=== PATIENT | female | born 1950 | race Caucasian/White ===

== ENCOUNTER 2019-04-28 20:01 | Inpatient (IN) | payer MEDICARE, OTHER ==
[~2019-04-28] VITALS: Ht 175.3 cm; Wt 146.6 kg
[2019-04-28 20:59] LABS: Hematocrit 37.6 % (33.0-51.0); Hemoglobin 12.2 g/dL (11.5-16.0); Mean Corpuscular HGB 31.1 pg (26.0-34.0); Mean Corpuscular HGB Conc 32.4 g/dL (31.5-36.5); Mean Corpuscular Volume 96 fL (80-100); Mean Platelet Volume 10.4 fL (9.1-12.4); Platelet Count 94 K/mm3 (150-400); RDW Coefficient Variation 13.6 % (11.7-14.2); RDW Standard Deviation 48.1 fL (35.1-46.3); Red Blood Cell Count 3.92 M/mm3 (3.80-5.20); White Blood Cell Count 8.25 K/mm3 (4.00-11.30)
[2019-04-28 21:15] LABS: BAND PERCENT MAN 14 % (0-8); BASOPHILS ABSOLUTE MAN 0.08 K/mm3 (0.00-0.23); BASOPHILS PERCENT MAN 1 % (0-2); EOSINOPHILS PERCENT MAN 0 % (0-6); LYMPHOCYTES ABSOLUTE MAN 0.74 K/mm3 (0.84-5.20); LYMPHOCYTES PERCENT MAN 9 % (21-46); MONOCYTES ABSOLUTE MAN 0.49 K/mm3 (0.16-1.47); MONOCYTES PERCENT MAN 6 % (4-13); NEUTROPHILS ABSOLUTE MAN 6.93 K/mm3 (1.96-9.15); SEG NEUTROPHILS PERCENT MAN 70 % (41-73); TOTAL CELLS COUNTED 100
[2019-04-28 21:17] LABS: Albumin, Blood 3.4 g/dL (3.4-5.0); Albumin/Globulin Ratio 0.8 (0.8-1.8); Bilirubin, Total 1.6 mg/dL (0.1-1.0); Bun/Creatinine Ratio 20.5 (12.0-20.0); Calcium, Blood 9.3 mg/dL (8.5-10.1); Creatinine, Blood 1.17 mg/dL (0.40-1.00); Globulin, Blood 4.4 g/dL (2.2-4.0); Potassium, Blood 3.8 mmol/L (3.5-5.5); Total Protein, Blood 7.8 g/dL (6.4-8.2)
[2019-04-28] MEDS ORDERED: MS Contin15 MG PO (22:06)
[2019-04-28] MEDS ORDERED: Protonix40 MG PO (22:06)
[2019-04-28] MEDS ORDERED: VENLAFAXINE HCL75 MG PO (22:06)
[2019-04-28] MEDS ORDERED: Zantac150 MG PO (22:06)
[2019-04-28] MEDS ORDERED: HYDCHL25 PO (22:07)
[2019-04-28] MEDS ORDERED: PROP160ER PO (22:07)
[2019-04-28 22:15] LABS: Source, Urine Clean Catch
[2019-04-28 22:18] LABS: Bilirubin, Urine Neg (Neg); Blood, Urine Neg (Neg); Glucose Qualitative, Urine Neg (Neg); Ketones, Urine Neg (Neg); Leukocyte Esterase, Urine 2+ (Neg); Nitrite, Urine Neg (Neg); Protein, Urine 1+ (Neg); Specific Gravity, Urine 1.015 (1.003-1.022); Urobilinogen, Urine 2+ (Normal); pH, Urine 6.5 (5.0-8.0)
[2019-04-28 22:21] LABS: Appearance, Urine Clear (Clear); Color, Urine Yellow (P-Yellow)
[2019-04-28 22:26] LABS: Bacteria Few /hpf; Red Blood Cells, Urine Not Seen /hpf (0-2); Squamous Epithelial Cells Few /hpf (Few)
[2019-04-29 05:20] LABS: BASOPHILS ABSOLUTE AUTO 0.02 K/mm3 (0.00-0.23); BASOPHILS PERCENT AUTO 0 % (0-2); EOSINOPHILS ABSOLUTE AUTO 0.05 K/mm3 (0.00-0.68); EOSINOPHILS PERCENT AUTO 1 % (0-6); Hematocrit 31.8 % (33.0-51.0); Hemoglobin 10.2 g/dL (11.5-16.0); IMMATURE GRAN ABSOLUTE AUTO 0.03 K/mm3 (0.00-0.10); IMMATURE GRAN PERCENT AUTO 1 % (0-1); LYMPHOCYTES ABSOLUTE AUTO 0.89 K/mm3 (0.84-5.20); LYMPHOCYTES PERCENT AUTO 14 % (21-46); MONOCYTES ABSOLUTE AUTO 0.61 K/mm3 (0.16-1.47); MONOCYTES PERCENT AUTO 10 % (4-13); Mean Corpuscular HGB 31.3 pg (26.0-34.0); Mean Corpuscular HGB Conc 32.1 g/dL (31.5-36.5); Mean Corpuscular Volume 98 fL (80-100); Mean Platelet Volume 10.4 fL (9.1-12.4); NEUTROPHILS ABSOLUTE AUTO 4.65 K/mm3 (1.96-9.15); NEUTROPHILS PERCENT AUTO 74 % (41-73); Platelet Count 77 K/mm3 (150-400); RDW Coefficient Variation 13.6 % (11.7-14.2); RDW Standard Deviation 48.6 fL (35.1-46.3); Red Blood Cell Count 3.26 M/mm3 (3.80-5.20); White Blood Cell Count 6.25 K/mm3 (4.00-11.30)
--- NOTE | 2019-04-29 05:29 | NUR ---
SHIFT SUMMARY PT NEW ED ADMIT THIS EVENING. ACUTE PANCREATITIS. DENIED NAUSEA SINCE ADMISSION BUT REPORTS ABD PAIN TO MID UPPER AND R LOWER QUADRANTS. MEDICATED X 1 WITH 1 MG DILAUDID AND PT HAS BEEN SLEEPING EVER SINCE. PT AMBULATED WELL TO THE RESTROOM WITH A FWW AND SBA. NS W/ 20 K RUNNING AT 150 ML/HR ORDERED. PT ON HOME DOSE OF O2 AT 2.5 L VIA NC. PT HAS BEEN NPO THROUGHOUT THE NIGHT. SPONGES PROVIDED TO MOISTEN MOUTH. ICE PACK REQUESTED BY PATIENT FOR RLQ ABD PAIN, APPEARS TO BE HELPFUL. PT A/O, PLEASANT AND COOPERATIVE. NO ACUTE CHANGES THIS SHIFT. VITAL SIGNS STABLE. WILL CONTINUE TO MONITOR.
[2019-04-29 05:43] LABS: Albumin, Blood 2.8 g/dL (3.4-5.0); Albumin/Globulin Ratio 0.8 (0.8-1.8); Bilirubin, Total 0.7 mg/dL (0.1-1.0); Bun/Creatinine Ratio 19.1 (12.0-20.0); Calcium, Blood 8.3 mg/dL (8.5-10.1); Creatinine, Blood 1.1 mg/dL (0.40-1.00); Globulin, Blood 3.6 g/dL (2.2-4.0); Potassium, Blood 4.2 mmol/L (3.5-5.5); Total Protein, Blood 6.4 g/dL (6.4-8.2)
--- NOTE | 2019-04-29 15:56 | NUR ---
SHIFT SUMMARY NO ACUTE CHANGES. PATIENT MEDICATED X2 FOR ABDOMINAL PAIN. PATIENT DENIES NAUSEA AND SHORTNESS OF BREATH. PATIENT NAPPING MOST OF SHIFT. PATIENT WORKED WITH PT TODAY. PATIENT UP SBA W/FWW TO BR. PATIENT NPO. CALL LIGHT IN REACH.
--- NOTE | 2019-04-30 06:33 | NUR ---
SHIFT SUMMARY: 69 Y/O OBESE FEMALE RESTED COMFORTABLY ALL SHIFT, PT C/O ABD PAIN RATED 6/10 WITH FENTANYL 50MCG IVP GIVEN THREE TIMES WITH RELIEF FELT, ABLE TO TRANSFER AND AMBULATE TO BATHROOM WITHOUT DIFFICULTY, VOIDING CLEAR YELLOW FLUID, BED LOW POSITION WITH CALL LIGHT AT SIDE.
--- NOTE | 2019-04-30 18:13 | NUR ---
SHIFT SUMMARY PT RESTING QUIETLY AT START OF SHIFT, SUPINE LF, WITH IVF'S INFUSING PER EMAR. MEDICATED FOR C/O PAIN X2 THIS SHIFT. PAIN LEVEL IMPROVED TODAY. PT TOLERATING FL DIET. ADVANCED FROM NPO THIS AM TO CL AT LUNCH AND FL FOR DINNER. PT HAS BEEN INDEPENDENT IN AND TO [facility]. TOOK A SHOWER THIS AM. VISITORS THRU OUT THE DAY. DENIED FURTHER NEEDS. CALL LT IN REACH.
[2019-05-01 05:09] LABS: Anion Gap 6 mmol/L (6-16); Blood Urea Nitrogen 9 mg/dL (8-24); Bun/Creatinine Ratio 9.5 (12.0-20.0); CO2, Blood 26 mmol/L (21-32); Calcium, Blood 8.5 mg/dL (8.5-10.1); Chloride, Blood 113 mmol/L (98-108); Creatinine, Blood 0.95 mg/dL (0.40-1.00); Glomerular Filtration Rate >60 (60-); Glucose, Blood 112 mg/dL (70-99); Potassium, Blood 4.5 mmol/L (3.5-5.5); Sodium, Blood 145 mmol/L (136-145)
--- NOTE | 2019-05-01 06:29 | NUR ---
SHIFT SUMMARY PT HAD COMPLAINTS OF PAIN THAT STARTED WITH HER ABD, THEN SHE STARTED TO FEEL PAIN IN HER FEET AND LEGS. SHE WAS REPOSITIONED, WE PUT A PILLOW UNDER HER LEGS AND MEDICATED PER EMAR. PT MAY BENEFIT FROM SOMETHING FOR RESTLESS LEGS DUE TO PT REPORTING A HX OF RESTLESS LEG SYNDROME. WILL CONTINUE TO MONITOR.
--- NOTE | 2019-05-01 11:45 | NUR ---
PT DISCHARGED PT DISCHARGED AT 1140. PT IN STABLE CONDITION WITH VSS. PT & FAMILY EDUCTE DON DC INSTRUCTIONS. FOLLOW UP APPOINTMENT TO BE MADE BY [facility]NA[facility]EMENT. IV REMOVED & INTACT. NO NEW MEDS. PT WHEELED OUT BY AIDE & DRIVEN HOME BY FAMILY.
== END 2019-05-01 11:44 | disposition home or self-care (01) | DRG 439 ==
LOC: ER 20:01 → MEDS 23:52 → ER 04-29 00:43 → MEDS 04-29 00:43
PROVIDERS: Internal Medicine; Nurse Practitioner Acute Care; Physician Assistant; ADMIT Hospitalist
DX: K85.90 Acute pancreatitis without necrosis or infection, unspecified (principal); M48.56XA Collapsed vertebra, not elsewhere classified, lumbar region, initial encounter for fracture; N39.0 Urinary tract infection, site not specified; Z68.42 Body mass index [BMI] 45.0-49.9, adult; N18.3 Chronic kidney disease, stage 3 (moderate); E13.22 Other specified diabetes mellitus with diabetic chronic kidney disease; K59.09 Other constipation; K74.60 Unspecified cirrhosis of liver; K75.81 Nonalcoholic steatohepatitis (NASH); E66.01 Morbid (severe) obesity due to excess calories; G47.33 Obstructive sleep apnea (adult) (pediatric); D69.6 Thrombocytopenia, unspecified; J44.9 Chronic obstructive pulmonary disease, unspecified; D63.1 Anemia in chronic kidney disease; B19.20 Unspecified viral hepatitis C without hepatic coma; Z88.5 Allergy status to narcotic agent; Z88.2 Allergy status to sulfonamides; Z91.040 Latex allergy status; Z91.013 Allergy to seafood; Z89.422 Acquired absence of other left toe(s); Z89.421 Acquired absence of other right toe(s)
CPT/HCPCS: 36415; 74176; 80048; 80053; 81001; 83690; 85025; 87086; 96361; 96374; 96375; 96376; 97162; 97530; 99285-25; C9113; J0696; J1170; J1650; J2270; J2405; J3010; J3480; J7030

== ENCOUNTER 2019-05-23 23:50 | Emergency (ER) | payer MEDICARE, OTHER ==
[~2019-05-23] VITALS: Ht 172.7 cm; Wt 148.3 kg
[~2019-05-23 23:50] MED LIST: HYDCHL25 PO; MS Contin15 MG PO; PROP160ER PO; Protonix40 MG PO; VENLAFAXINE HCL75 MG PO; Zantac150 MG PO
== END 2019-05-24 01:49 | disposition home or self-care (01) ==
LOC: ER 23:50
DX: S00.83XA Contusion of other part of head, initial encounter (principal); E11.22 Type 2 diabetes mellitus with diabetic chronic kidney disease; N18.9 Chronic kidney disease, unspecified; Z88.2 Allergy status to sulfonamides; Z88.5 Allergy status to narcotic agent; Z91.040 Latex allergy status; Z91.013 Allergy to seafood; Z79.899 Other long term (current) drug therapy; W01.10XA Fall on same level from slipping, tripping and stumbling with subsequent striking against unspecified object, initial encounter
CPT/HCPCS: 70450; 70486; 72125; 96372; 99283; J3010

== ENCOUNTER → 2020-09-07 | Outpatient (CLI) | payer MEDICARE, OTHER | END | disposition home or self-care (01) | LOC: LAB SHORT 19:05 → LAB 19:05 | DX: N10 Acute pyelonephritis (principal); Z88.2 Allergy status to sulfonamides; Z91.040 Latex allergy status; Z88.5 Allergy status to narcotic agent; Z91.013 Allergy to seafood | CPT/HCPCS: 87086 ==